=== PATIENT | male | born 1950 | race Caucasian/White ===

== ENCOUNTER 2018-01-30 00:45 | Inpatient (IN) | payer OTHER ==
[~2018-01-30] VITALS: Ht 185.4 cm; Wt 70.3 kg
[~2018-01-30 00:45] MED LIST: AMLODIPINE-BEN1 EAC4 PO; CLOPIDOGREL75 M1 PO; HYDROCHLOROTHIA25 M1 PO; OXYCODONE HCL10 M2 PO; RESTORIL30 M1 PO; ST. JOSEPH ASPI81 M1 PO; TOPROL XL50 M1 PO
--- NOTE | 2018-01-30 13:03 | Operative Report ---
Operative/Inv Procedure Report Surgery Date: 01/30/18 Name of Procedure: Right femoral anterior tibial artery bypass with reversed greater saphenous vein harvested from the contralateral leg Pre-Operative Diagnosis: Right lower extremity rest pain Post-Operative Diagnosis: Same Estimated Blood Loss: 50ml to 100ml Surgeon/Linotypist: Gissel FOSTER,Jesus/Messi FOSTER, Sergei Anesthesia: general endotracheal tube Operative/Procedure Note Note: Patient is a 67-year-old man with peripheral arterial disease and active smoker who presented with right leg rest pain. Preoperative imaging showed that the right greater saphenous vein was inadequate. Left greater saphenous vein was adequate in size. The patient was scheduled for right femoral to anterior tibial artery bypass with reverse greater saphenous vein. The nature of the procedure including is possible complications which included but not limited to bleeding, infection, heart attack, blood clots, injury to vessels or nerve, and need for re-intervention were discussed. An informed consent was obtained. No qualified resident was available to assist in this complex case. Patient was taken to the operating room and placed supine on the table. A timeout was called according to protocol. 2 g of Ancef had been started. After satisfactory induction of anesthesia, a Jose catheter was placed. The patient was then prepped and draped in standard surgical fashion. Using ultrasound, left greater saphenous vein was marked. Left greater saphenous vein was then harvested by making an incision over the marked area on the skin. All branches were tied with silk ties. Then the attention was taken to the right leg. Using a scalpel, a longitudinal incision was made over the right groin. The common femoral artery was dissected sharply with Metzenbaum scissors. Proximal distal and profunda control were obtained loosely placed vessel loops. Then our attention was taken to the right lateral leg. An incision was made about shelter between the tibia and fibula and the lateral right leg. The incision was carried down through the subcutaneous tissue using electrocautery. The crural fascia was divided. The anterior tibialis muscle was retracted superiorly. Blunt dissection by retracting the extensor hallux longus posteriorly was carried out. The neurovascular bundle was noted. Small venous tributaries were ligated and divided. Anterior tibial artery was dissected sharply with Metzenbaum scissors. Proximal and distal control were obtained by loosely placing vessel loops. Then a tunneler was used to tunnel a subcutaneous course going from lateral right leg into the anterior groin. The vein was brought to the field and inflated with saline solution. The vein was then marked with marking pen. The vein was grafted and pulled through the tunneler. Care was taken not to twist the vein. At this time, 7000 units of heparin was given. After 3 minutes had passed, proximal distal and profunda control was obtained on the femoral artery. Using an 11 blade, an arteriotomy was made over the common femoral artery. The arteriotomy was extended using Brink scissors. The vein was then spatulated and sewn with 6-0 Prolene suture to create the proximal anastomosis. General was taken to the distal anastomosis. The vein was cut to size. The vein was then spatulated and edges were trimmed. Using an 11 blade, an arteriotomy was made over the anterior tibial artery. The arteriotomy was extended using Brink scissors. Proximal and distal control on anterior tibial artery were obtained by the way by pulling the vessel loops. 7- 0 Prolene suture was used to make the distal anastomosis. Prior to completing the anastomosis, the vein bypass was flushed and there was nice pulsatile flow. The anastomosis was then irrigated with heparinized saline solution. Upon completion of the anastomosis, there was great Doppler flow distal to the anastomosis. Hemostasis was obtained. The wound on the left leg was closed with 3-0 Vicryl suture in subdermal fashion. The skin was then closed with 4-0 Monocryl suture in subcuticular fashion. The groin wound was closed in 4 layers using 3-0 Vicryl suture. The skin was then closed with 4-0 Monocryl suture. The right leg wound was closed with 3-0 Vicryl suture in a subdermal fashion. The skin was then closed with karlene. Sterile dressings were applied to all wounds. The count at the end of the case was correct. The patient tolerated the procedure well and was taken to the recovery room in stable condition.
--- NOTE | 2018-01-30 13:20 | Admission Core Measures ---
Acute Coronary Syndrome (CM) ACS Core Measures Acute Coronary Syndrome Diagnosis No Congestive Heart Failure (NEW) CHF Core Measures Congestive Heart Failure Diagnosis No Cerebrovascular Accident (NEW) CVA Core Measures CVA/TIA Diagnosis No Venous Thromboembolism VTE Core Rosio (View Protocol) VTE Risk Factors Surgery No Mechanical VTE Prophylaxis d/t Surgical Contraindication No VTE Pharm Prophylaxis d/t NA PharmProphylax ordered Problem List As ranked by this Provider includes Assessment & Plan 1. Peripheral arterial occlusive disease HOME MEDS Home Med List Amlodipine Besylate/Benazepril (Amlodipine-Benazepril 10-20 MG) 10 MG-20 MG CAPSULE 1 CAP PO DAILY BP (Reported) Aspirin ([place] Aspirin) 81 MG TABLET.DR 1 TAB PO DAILY HEART HEALTH ( Reported) Clopidogrel Bisulfate (Clopidogrel) 75 MG TABLET 1 TAB PO DAILY STENT ( Reported) Hydrochlorothiazide 25 MG TABLET 1 TAB PO DAILY BP (Reported) Oxycodone HCl 10 MG TABLET 1 TAB PO 4XDP pain (Reported) Temazepam (Restoril) 30 MG CAPSULE 1 CAP PO QPM SLEEP (Reported)
--- NOTE | 2018-01-30 14:41 | PN- Vascular Surgery ---
Subjective Subjective: POC some pain in right foot, no cp/sob, awaiting transport to floor, +uo via machado, no n/v. Objective Vital Signs and I&Os see EMR Physical Exam: GEN- NAD CARD- s1s2 RRR PULM- CTAB ABD- soft nt EXT- R groin dressed, scant bloody staining, no ecchymosis, soft. palp dp bl. lle dressed in neeru, cdi. R foot warm. Assessment/Plan Assessment/Plan A- POD0 sp Right Fem-ant tib bypass with contralateral vein graft, stable P- ASA and Plavix tonight hh diet as lori pain meds prn home meds machado- dc in am oob as tolerated. pt in am dc planning Core Measures Venous Thromboembolism VTE Risk Factors Surgery No Mechanical VTE Prophylaxis d/t Surgical Contraindication No VTE Pharm Prophylaxis d/t NA PharmProphylax ordered
[2018-01-30 14:57] VITALS: BP 143/81
[2018-01-30 17:00] VITALS: BP 95/64
[2018-01-30 20:24] VITALS: BP 112/58
[2018-01-30 22:17] VITALS: BP 124/70
[2018-01-31 02:00] VITALS: BP 118/64
[2018-01-31 06:00] VITALS: BP 112/62
--- NOTE | 2018-01-31 07:41 | PN- Vascular Surgery ---
Subjective Subjective: Awake, alert Ambulating in room without difficulty Pain is not tolerable without frequent meds - per patient he was taking a "lot" of oxy for two months prior to surgery for pain at rest Objective Vital Signs and I&Os Vital Signs Date Time Temp Pulse Resp B/P B/P Pulse O2 O2 Flow FiO2 Mean Ox Delivery Rate 01/31 0600 97.8 75 18 112/62 94 01/31 0200 98.1 68 18 118/64 94 01/30 2217 98.2 70 18 124/70 95 Room Air 01/30 2024 98.4 70 20 112/58 95 Room Air 01/30 1700 97.7 69 18 95/64 96 Room Air 01/30 1457 97.8 64 18 143/81 92 Room Air Intake & Output 01/31 0800 01/31 0000 01/30 1600 01/30 0800 01/30 0000 01/29 1600 Intake Total 1280 580 Output Total 725 325 Balance 555 255 Intake, IV 800 340 Intake, Oral 480 240 Number 0 0 Bowel Movements Output, 0 Drainage Output, Urine 725 325 Patient 155 lb Weight Weight Reported by Patient Measurement Method Physical Exam: vss, afebrile General: alert and oriented times three Chest: clear anterioly bilaterally, Abd: soft Ext: warm, no edema, dopplerable pulse R DP/PT, non palpable Wds: dressed - LLE clean and dry, R groin blood staining, R lower leg clean and dry Assessment/Plan Assessment/Plan 67yo male s/p R fem-ant tib bypass with LLE svg plavix/aspirin/heparin sc for dvt ppx pain management - change percocet to oxycodone as pt will have too much tylenol morphine iv for breakthrough Core Measures Venous Thromboembolism VTE Risk Factors Surgery No Mechanical VTE Prophylaxis d/t Surgical Contraindication No VTE Pharm Prophylaxis d/t NA PharmProphylax ordered
[2018-01-31 08:56] LABS: ABSOLUTE BASOPHIL COUNT 0 /CUMM (0.0-0.2); ABSOLUTE EOSINOPHIL COUNT 0 /CUMM (0.0-0.7); ABSOLUTE GRANULOCYTE CT 6.4 /CUMM (1.4-6.5); ABSOLUTE LYMPH COUNT 1.6 /CUMM (1.2-3.4); ABSOLUTE MONOCYTE COUNT 0.8 /CUMM (0.10-0.60); BASOPHIL % 0.3 % (0.0-2.0); EOSINOPHIL % 0.1 % (0-5); GRANULOCYTE % 72.5 % (42.2-75.2); HEMATOCRIT 26.6 % (42-52); MEAN CORPUSCULAR HGB 30.9 PG (27.0-31.0); MEAN CORPUSCULAR HGB CONC 33.1 G/DL (33.0-37.0); MEAN CORPUSCULAR VOLUME 93.4 FL (80.0-94.0); MEAN PLATELET VOLUME 8.3 FL (7.4-10.4); PLATELET COUNT 126 /CUMM (130-400); RBC DISTRIBUTION WIDTH 14.5 % (11.5-14.5); RED BLOOD CELL CT 2.85 /CUMM (4.70-6.10); WHITE BLOOD CELL COUNT 8.8 /CUMM (4.8-10.8)
[2018-01-31 10:30] VITALS: BP 128/80
[2018-01-31 14:17] VITALS: BP 120/68
[2018-01-31 14:43] VITALS: BP 120/68
[2018-01-31 21:00] VITALS: BP 110/70
--- NOTE | 2018-01-31 22:25 | PN- Vascular Surgery ---
Subjective Subjective: Post op check: Patient complaining of spasm like discomfort to his right lower extremity. He also reports complains of acid reflux. He other cruz denies shortness of breath and difficulty breathing. No complaints of nausea or vomitting. Has machado catheter in place. Objective Vital Signs and I&Os Vital Signs Date Time Temp Pulse Resp B/P B/P Pulse O2 O2 Flow FiO2 Mean Ox Delivery Rate 01/31 1443 97.6 78 18 120/68 95 Room Air 01/31 1417 97.6 78 18 120/68 95 Room Air 01/31 1042 78 122/80 01/31 1030 98.0 78 20 128/80 97 Room Air 01/31 0600 97.8 75 18 112/62 94 01/31 0200 98.1 68 18 118/64 94 01/30 2217 98.2 70 18 124/70 95 Room Air Intake & Output 01/31 1600 01/31 0800 01/31 0000 01/30 1600 01/30 0800 01/30 0000 Intake Total 900 1280 580 Output Total 650 725 325 Balance 250 555 255 Intake, IV 100 800 340 Intake, Oral 800 480 240 Number 0 0 0 Bowel Movements Output, 0 Drainage Output, Urine 650 725 325 Patient 155 lb Weight Weight Reported by Patient Measurement Method Physical Exam: General: Alert and oriented x3, no acute distress Cardiac: rrr, s1s2 Pulm: CTA bilaterally ABD: non-tender, non-distended Extremities: Gross exams: Moves all extremties, distal sensation grossly intact. Skin warm and well perfused. Calves soft and non-tender bilaterally. Vascular exam: Palpable pulse over graft site, lateral right knee, dp/pt pulses dopplerable bialterally. Dressing to distal aspect of LLE changed, no evidence of active bleeding from saphenous vein harvest site. Bruising noted at proximal aspect of harvest site on lle. No active bleeding evident. Assessment/Plan Assessment/Plan This is a 67 year old male, POD 0, s/p revision R fem-ant tib bypass with LLE svg Neurovascular check q shift, assess graft site, lateral aspect of right knee, palpable at baseline Moravian heparin drip, 700 units/hour Plavix tonight, asa tomorrow am Ancef for abx ppx Valium for spasm Will d/w Dr. Chauhan Core Measures Venous Thromboembolism VTE Risk Factors Surgery No Mechanical VTE Prophylaxis d/t Surgical Contraindication No VTE Pharm Prophylaxis d/t NA PharmProphylax ordered
[2018-02-01 06:50] VITALS: BP 113/54
--- NOTE | 2018-02-01 07:36 | PN- Vascular Surgery ---
See Addendum Subjective Subjective: Patient continues to complain of intermittent burning pain and spasms, he states the pain is improved with Morphine, but does not completely resolve his pain. He reports voiding and has not ambulated oob since surgery. Denies chest pain, shortness of breath or difficulty breathing Objective Vital Signs and I&Os Vital Signs Date Time Temp Pulse Resp B/P B/P Pulse O2 O2 Flow FiO2 Mean Ox Delivery Rate 02/01 0650 97.9 77 18 113/54 92 Nasal 2.0L Cannula 02/01 0000 94 Nasal 2.0L Cannula 01/31 2100 97.9 70 18 110/70 95 Nasal 3.0L Cannula 01/31 1443 97.6 78 18 120/68 95 Room Air 01/31 1417 97.6 78 18 120/68 95 Room Air 01/31 1042 78 122/80 01/31 1030 98.0 78 20 128/80 97 Room Air Intake & Output 02/01 0800 02/01 0000 01/31 1600 01/31 0800 01/31 0000 01/30 1600 Intake Total 1030 152 050 3818 580 Output Total 200 500 650 725 325 Balance 830 205 250 555 255 Intake, IV 790 225 100 800 340 Intake, Oral 240 480 800 480 240 Number 0 0 0 Bowel Movements Output, 0 Drainage Output, Urine 200 500 650 725 325 Patient 155 lb Weight Weight Reported by Patient Measurement Method Physical Exam: Gen - awake an alert in NAD Cardiac - S1S2, rrr Lungs - CTAB Ext - significant brusing in right groin area, dressing c/d/i, right lateral leg dressing mildly saturated an taken down, closed with karlene healing well with no signs of infection, pulses present, redressed with gauze an tape, LLE with neeru wrap in place, c/d/i, DP/PT pulses present B/L Current Medications: Current Medications Sig/Nic Start time Last Medication Dose Route Stop Time Status Admin Acetaminophen 650 MG Q6P PRN 01/31 1815 AC PO Acetaminophen 650 MG Q6P PRN 01/30 1500 DC PO Amlodipine Besylate 10 MG DAILY 02/01 1000 AC PO Amlodipine Besylate 10 MG DAILY 01/31 1000 DC PO Amlodipine Besylate 10 MG DAILY 01/31 1000 DC 01/31 PO 1042 Aspirin Buffered 81 MG DAILY 02/01 1000 AC PO Aspirin Buffered 81 MG DAILY 01/30 2000 DC 01/31 PO 1041 Cefazolin Sodium 2 GM IQ8 02/01 0000 AC 02/01 N/A 1 UNIT IV 02/01 0829 0722 Clopidogrel Bisulfate 75 MG 2200 01/31 2200 CAN PO Clopidogrel Bisulfate 75 MG Q24H 01/31 2000 AC 01/31 PO 2039 Clopidogrel Bisulfate 75 MG DAILY 01/31 2000 DC 01/30 PO 2011 Dextrose/Sodium 1,000 ML Q13H 01/31 1830 AC 02/01 Chloride IV 0618 Dextrose/Sodium 1,000 ML .Q10H 01/30 1500 DC 01/31 Chloride IV 01/31 1059 0403 Diazepam 5 MG Q8P PRN 01/31 2230 AC 01/31 PO 2355 Docusate Sodium 100 MG BID 01/31 2200 AC 01/31 PO 2039 Docusate Sodium 100 MG BID 01/30 2200 DC 01/30 PO 2048 Fentanyl Citrate 200 MCG .STK-MED ONE 01/31 1359 DC IM 01/31 1400 Heparin Sodium 25,000 U Q24H 01/31 1830 AC 01/31 (Porcine) IV 2038 Sodium Chloride 500 ML Heparin Sodium 25,000 UNIT DAILY 01/31 1816 CAN (Porcine) IV Heparin Sodium 5,000 UNIT Q8 01/30 1400 DC 01/31 (Porcine) SC 0539 Hydrochlorothiazide 25 MG DAILY 02/01 1000 AC PO Hydrochlorothiazide 25 MG DAILY 01/31 1000 DC PO Hydrochlorothiazide 25 MG DAILY 01/31 1000 DC 01/31 PO 1041 Lisinopril 10 MG DAILY 02/01 1000 AC PO Lisinopril 10 MG DAILY 01/31 1000 DC 01/31 PO 1042 Meperidine HCl 50 MG .STK-MED ONE 01/31 1814 DC IM 01/31 1815 Metoprolol Succinate 50 MG DAILY 02/01 1000 AC PO Metoprolol Succinate 50 MG DAILY 01/31 1000 DC PO Metoprolol Succinate 50 MG DAILY 01/31 1000 DC 01/31 PO 1042 Morphine Sulfate 2 MG Q2P PRN 01/31 1815 AC 02/01 IV 0554 Morphine Sulfate 2 MG Q2P PRN 01/30 1500 DC 01/31 IV 0633 Nicotine 14 MG DAILY 02/01 1000 AC TOP Nicotine 14 MG DAILY 01/30 1530 DC 01/31 TOP 1041 Ondansetron HCl 4 MG Q6P PRN 01/31 1815 AC IV Ondansetron HCl 4 MG Q6P PRN 01/30 1500 DC IV Oxycodone HCl 5 MG Q4P PRN 01/31 181 AC PO Oxycodone HCl 10 MG Q4P PRN 01/31 181 AC 02/01 PO 0722 Oxycodone HCl 5 MG Q4P PRN 01/31 0745 DC PO Oxycodone HCl 10 MG Q4P PRN 01/31 0745 DC 01/31 PO 1147 Oxycodone/ 1 TAB Q4P PRN 01/30 1500 DC Acetaminophen PO Oxycodone/ 2 TAB Q4P PRN 01/30 1500 DC 01/31 Acetaminophen PO 0539 Pantoprazole Sodium 40 MG DAILY 01/31 2230 AC 01/31 IV 2355 Polyethylene Glycol 17 GM DAILY 02/01 1000 AC PO Polyethylene Glycol 17 GM DAILY 01/31 1000 DC PO Polyethylene Glycol 17 GM DAILY NEEDED 01/30 1500 DC PO Promethazine HCl 12.5 MG Q6P PRN 01/31 1815 AC IV 02/07 1814 Promethazine HCl 12.5 MG Q6P PRN 01/30 1500 DC IV 02/06 1314 Results Last 48 Hours of Labs: Laboratory Tests 01/31 0610 Chemistry Sodium (137 - 145 mmol/L) 135 L Potassium (3.5 - 5.1 mmol/L) 4.2 Chloride (98 - 107 mmol/L) 103 Carbon Dioxide (22 - 30 mmol/L) 24 Anion Gap (5 - 16) 8 BUN (9 - 20 mg/dL) 23 H Creatinine (0.7 - 1.2 mg/dL) 0.8 Estimated GFR (>60 ml/min) > 60 BUN/Creatinine Ratio (7 - 25 %) 28.8 H Hematology CBC w Diff NO MAN DIFF REQ WBC (4.8 - 10.8 /CUMM) 8.8 RBC (4.70 - 6.10 /CUMM) 2.85 L Hgb (14.0 - 18.0 G/DL) 8.8 L Hct (42 - 52 %) 26.6 L MCV (80.0 - 94.0 FL) 93.4 MCH (27.0 - 31.0 PG) 30.9 MCHC (33.0 - 37.0 G/DL) 33.1 RDW (11.5 - 14.5 %) 14.5 Plt Count (130 - 400 /CUMM) 126 L MPV (7.4 - 10.4 FL) 8.3 Gran % (42.2 - 75.2 %) 72.5 Lymphocytes % (20.5 - 51.1 %) 17.9 L Monocytes % (1.7 - 9.3 %) 9.2 Eosinophils % (0 - 5 %) 0.1 Basophils % (0.0 - 2.0 %) 0.3 Absolute Granulocytes (1.4 - 6.5 /CUMM) 6.4 Absolute Lymphocytes (1.2 - 3.4 /CUMM) 1.6 Absolute Monocytes (0.10 - 0.60 /CUMM) 0.8 H Absolute Eosinophils (0.0 - 0.7 /CUMM) 0 Absolute Basophils (0.0 - 0.2 /CUMM) 0 Assessment/Plan Assessment/Plan This is a 67 year old male, POD 1, s/p revision R fem-ant tib bypass with LLE svg Neurovascular check q shift Yazidi heparin drip, 700 units/hour Postop abx - ancef Asa this am Cont plavix Pain regimen prn, add oxycodone cr 10 mg bid Valium for spasm Home meds on board GI ppx on board Nicotine patch Cardiac diet, d/c IVF PT eval F/u labs Will d/w Dr. Chauhan Core Measures Venous Thromboembolism VTE Risk Factors Surgery No Mechanical VTE Prophylaxis d/t Surgical Contraindication No VTE Pharm Prophylaxis d/t NA PharmProphylax ordered
--- NOTE | 2018-02-01 07:58 | RADIOLOGY REPORT ---
EXAMINATION: CR RIGHT LEG/INTRAOPERATIVE FLUOROSCOPY CLINICAL INDICATION: Right leg thrombectomy. COMPARISON: None TECHNIQUE/FINDINGS: Fluoroscopic equipment was dedicated to the operating room for the performance of an intraoperative procedure. Several (23) spot films and 11 cine fluoroscopy runs were acquired and are archived in PACS. Please refer to operative notes for procedural detail. FLUOROSCOPY TIME: 1.35 minutes. IMPRESSION: Administrative dictation for intraoperative fluoroscopy and image archiving in PACS. Please refer to operative notes for details.
[2018-02-01 08:00] LABS: PTT 32 SEC (25-37)
[2018-02-01 08:22] LABS: ABSOLUTE BASOPHIL COUNT 0.1 /CUMM (0.0-0.2); ABSOLUTE EOSINOPHIL COUNT 0.1 /CUMM (0.0-0.7); ABSOLUTE GRANULOCYTE CT 7.4 /CUMM (1.4-6.5); ABSOLUTE LYMPH COUNT 1.6 /CUMM (1.2-3.4); BASOPHIL % 0.5 % (0.0-2.0); EOSINOPHIL % 0.6 % (0-5); GRANULOCYTE % 73.5 % (42.2-75.2); HEMATOCRIT 25.2 % (42-52); MEAN CORPUSCULAR HGB 30.5 PG (27.0-31.0); MEAN CORPUSCULAR HGB CONC 33.3 G/DL (33.0-37.0); MEAN CORPUSCULAR VOLUME 91.7 FL (80.0-94.0); MEAN PLATELET VOLUME 8.6 FL (7.4-10.4); RBC DISTRIBUTION WIDTH 14.1 % (11.5-14.5); RED BLOOD CELL CT 2.75 /CUMM (4.70-6.10)
[2018-02-01 08:35] LABS: PLATELET COUNT 209 /CUMM (130-400)
[2018-02-01 14:11] VITALS: BP 112/50
[2018-02-01 15:39] LABS: ABSOLUTE BASOPHIL COUNT 0 /CUMM (0.0-0.2); ABSOLUTE EOSINOPHIL COUNT 0.1 /CUMM (0.0-0.7); ABSOLUTE GRANULOCYTE CT 5.8 /CUMM (1.4-6.5); ABSOLUTE LYMPH COUNT 1.3 /CUMM (1.2-3.4); ABSOLUTE MONOCYTE COUNT 0.8 /CUMM (0.10-0.60); BASOPHIL % 0.5 % (0.0-2.0); EOSINOPHIL % 0.7 % (0-5); GRANULOCYTE % 72.6 % (42.2-75.2); HEMATOCRIT 22.7 % (42-52); MEAN CORPUSCULAR HGB CONC 34.4 G/DL (33.0-37.0); MEAN PLATELET VOLUME 8.7 FL (7.4-10.4); PLATELET COUNT 204 /CUMM (130-400); RBC DISTRIBUTION WIDTH 14.4 % (11.5-14.5); RED BLOOD CELL CT 2.52 /CUMM (4.70-6.10)
[2018-02-01 22:00] VITALS: BP 99/58
[2018-02-02 06:49] VITALS: BP 120/71
[2018-02-02 08:15] LABS: ABSOLUTE BASOPHIL COUNT 0 /CUMM (0.0-0.2); ABSOLUTE EOSINOPHIL COUNT 0.1 /CUMM (0.0-0.7); ABSOLUTE GRANULOCYTE CT 5.5 /CUMM (1.4-6.5); ABSOLUTE LYMPH COUNT 1.4 /CUMM (1.2-3.4); ABSOLUTE MONOCYTE COUNT 0.7 /CUMM (0.10-0.60); BASOPHIL % 0.4 % (0.0-2.0); EOSINOPHIL % 1.4 % (0-5); GRANULOCYTE % 71.2 % (42.2-75.2); HEMATOCRIT 27.3 % (42-52); MEAN CORPUSCULAR HGB 30.2 PG (27.0-31.0); MEAN CORPUSCULAR VOLUME 88.8 FL (80.0-94.0); MEAN PLATELET VOLUME 8.2 FL (7.4-10.4); PLATELET COUNT 199 /CUMM (130-400); RBC DISTRIBUTION WIDTH 14.7 % (11.5-14.5); RED BLOOD CELL CT 3.08 /CUMM (4.70-6.10); WHITE BLOOD CELL COUNT 7.8 /CUMM (4.8-10.8)
--- NOTE | 2018-02-02 10:57 | PN- Vascular Surgery ---
Subjective Subjective: No events overnight. Patient admits to ongoing RLE spasms mostly below the knee, unchanged from previous. Admits to mild pain to RLE lateral incision. No pain to LLE currently. Denies any lightheadedness or dizziness. Tolerating his diet without nausea or emesis. Denies any chills, chest pain, or SOB. Voiding freely. Ambulated the hallway today without difficulty or evidence of bleeding on dressings. Objective Vital Signs and I&Os Vital Signs Date Time Temp Pulse Resp B/P B/P Pulse O2 O2 Flow FiO2 Mean Ox Delivery Rate 02/02 1032 78 132/80 02/02 0722 95 Nasal 2.0L Cannula 02/02 0649 98.5 75 19 120/71 96 Room Air 02/02 0000 97 Nasal 2.0L Cannula 02/01 2200 97.4 77 19 99/58 93 Room Air 02/01 1600 Nasal 2.0L Cannula 02/01 1411 99.0 76 18 112/50 90 Nasal 2.0L Cannula 02/01 1356 22 91 Nasal 2.0L Cannula 02/01 1355 22 86 Room Air Intake & Output 02/02 1600 02/02 0800 02/02 0000 02/01 1600 02/01 0800 02/01 0000 Intake Total 753 375 4557 705 Output Total 850 500 775 525 500 Balance -650 -500 137 505 205 Intake, IV 80 112 790 225 Intake, Oral 120 800 240 480 Number 1 0 Bowel Movements Output, Urine 850 500 775 525 500 Physical Exam: Afebrile, VSS. Cardiac: RRR Pulmonary:CTAB LE: Mild bilateral groin ecchymosis (unchanged from prior per patient), non tender to palpation. Bilateral calves soft and non tender to palpation. Skin warm and well perfused bilaterally. LLE: Dressing with minimal serosanguinous drainage at bottom of dressing. Dressing taken down. Incision c/d/i. No drainage noted. No hematomas noted. Dry sterile dressing applied. Sensation and motor grossly intact. + DP/PT pulse by doppler. RLE: Dressing c/d/i, no drainage noted. Dressing taken down. Incision c/d/i, karlene in place. New dressing applied. Palpable pulse over graft site. Motor and sensation grossly intact. + DP/PT pulse by doppler. Assessment/Plan Assessment/Plan 67 year old male, POD #2, s/p revision R fem-ant tib bypass with LLE svg. H/H improved this am. - Diet as tolerated - Neurovascular check q shift - Heparin drip decreased to 500 units/hour - Continue ASA and Plavix - Pain control prn - Valium for spasms - Continue home medications - GI ppx - Nicotine patch - PT following - Ultrasound obtained secondary to RLE spasms - will follow up results - Will d/w Dr. Chauhan Core Measures Venous Thromboembolism VTE Risk Factors Surgery No Mechanical VTE Prophylaxis d/t Surgical Contraindication No VTE Pharm Prophylaxis d/t NA PharmProphylax ordered
[2018-02-02 14:31] VITALS: BP 110/69
[2018-02-02] MEDS ORDERED: ELIQUIS2.5 M1 PO (16:58)
--- NOTE | 2018-02-02 17:03 | Patient Discharge Instructions ---
Discharge Instructions General Discharge Information You were seen/treated for: Right leg pain related to peripheral arterial disease You had these procedures: Right femoral anterior tibial artery bypass with reversed greater saphenous vein harvested from the contralateral leg, subsequent revision with thrombectomy of graft site Watch for these problems: Increasing pain despite the use of pain medications Increasing bruising and swelling of bilateral lower extremities Increasing coolness or discoloration of bilateral legs Drainage from incisions Do not soak the wound: Yes No bath, but you may shower: Yes Other wound care: Keep wounds clean and dry Diet Continue normal diet: Yes Recommended Diet: Heart Healthy Activity Full Activity/No Limits: No Activity Self Limited: Yes Pounds, do NOT lift more than: 10 Activity Limited to: Weight bear as tolerated (as) Acute Coronary Syndrome Inclusion Criteria At DC or during hospital stay patient has or had the following: ACS DIAGNOSIS No Discharge Core Measures Meds if any: Prescribed or Continued at Discharge Meds if any: NOT Prescribed or Continued at Discharge Congestive Heart Failure Inclusion Criteria At DC or during hospital stay patient has or had the following: CHF DIAGNOSIS No Discharge Core Measures Meds if any: Prescribed or Continued at Discharge Meds if any: NOT Prescribed or Continued at Discharge Cerebrovascular accident Inclusion Criteria At DC or during hospital stay patient has or had the following: CVA/TIA Diagnosis No Discharge Core Measures Meds if any: Prescribed or Continued at Discharge Meds if any: NOT Prescribed or Continued at Discharge Venous thromboembolism Inclusion Criteria VTE Diagnosis No VTE Type NONE VTE Confirmed by (Test) NONE Discharge Core Measures - Per Current guidelines, there needs to be overlap - treatment for the first 5 days of Warfarin therapy. - If discharged on Warfarin prior to 5 days of - overlap therapy, the patient will need to be - assessed for post discharge needs including - *Post discharge parental anticoagulation - *Warfarin and/or parental anticoagulation education - *Follow up date to check INR post discharge At least 5 days overlap therapy as Inpatient No Meds if any: Prescribed or Continued at Discharge Note: Overlap Therapy is Warfarin and Anticoagulant Meds if any: NOT Prescribed or Continued at Discharge
--- NOTE | 2018-02-02 17:09 | Surgical Discharge Summary ---
Visit Information Visit Dates Admission Date: 01/30/18 Discharge Date: 02/03/18 History of Present Illness Chief Complaint: Right leg pain related to peripheral arterial disease Medical History Blood Transfusion Hx: No Neurological: CVA EENT: NONE Cardiovascular: CAD, hypertension, PVD Respiratory: NONE Gastrointestinal: NONE Hepatic: NONE Renal: NONE Musculoskeletal: NONE Psychiatric: NONE Endocrine: NONE Blood Disorders: DVT Cancer(s): NONE ANGULAR DEVELOPER/Reproductive: NONE History of MRSA: No History of VRE: No History of CDIFF: No Isolation History: Standard Influenza Vaccine: 12/22/16 Surgical History Pertinent Surgical History: CARDIAC STENTS Psychosocial History Where Do You Live? Home Who Do You Live With? Spouse Services at Home: None Review of Systems: See H&P Hospital Course Course Attending Physician: Jesus Chauhan MD Primary Care Physician: Tyler FOSTER,[facility] Course: Patient was admitted to the hospital on 01/30/18 for a right femoral anterior tibial artery bypass with reversed greater saphenous vein harvested from the contralateral leg. The initial procedure was tolerated well, antiplatelet medications were administered post operatively. On post op day 1, his graft site was no longer patent, pulse was not palpable and he was taken to operating room for a revision bypass and thrombectomy. He tolerated the procedure well and recovered on a general surgical floor. Heparin drip was administered for 2 days post op and eventually converted to eliquis po. On post op day 3, post revision, his neurovascular status was intact and he was deemed appropriate for discharge to home. Complications: post-op acute blood loss anemia, s/p transfusion 2u prbc on 02/01, with improvement of anemia Allergies: Coded Allergies: No Known Allergies (01/26/18) Disposition Summary Disposition Principal Diagnosis: Right lower extremity rest pain related to peripheral arterial disease Additional Diagnosis: acute dawson-operative blood loss anemia, s/p transfusion 2u prbc on 02/02/16 Discharge Disposition: home or self care Discharge Instructions General Discharge Information Code Status: Full Code Patient's Diet: Heart healthy, advance as tolerated Patient's Activity: As tolerated Follow-Up Instructions/Appts: Follow up with Dr. Chauhan in one week Medications at Discharge Discharge Medications: Continue taking these medications: Amlodipine Besylate/Benazepril (Amlodipine-Benazepril 10-20 MG) 10 MG-20 MG CAPSULE 1 Capsule ORAL DAILY Comments: Last Taken: 3/16/18 Time: 10 AM Hydrochlorothiazide (Hydrochlorothiazide) 25 MG TABLET 1 Tablet ORAL DAILY Comments: Last Taken: 02/03/18 Time: 10 AM Aspirin ([place] Aspirin) 81 MG TABLET.DR 1 Tablet ORAL DAILY Comments: Last Taken: 02/03/18 Time: 10 AM Metoprolol Succ XL (Toprol Xl) 50 MG TAB Milligram ORAL DAILY Comments: Last Taken: 02/03/18 Time: 10 AM Temazepam (Restoril) 30 MG CAPSULE 1 Capsule ORAL Every night Comments: NOT GIVEN DURING THIS STAY Clopidogrel Bisulfate (Clopidogrel) 75 MG TABLET 1 Tablet ORAL DAILY Comments: NOT GIVEN DURING THIS STAY Start taking the following new medications: Apixaban (Eliquis) 2.5 MG TABLET 1 Tablet ORAL TWICE DAILY Qty = 60 No Refills Instructions: f/u with Comments: Last Taken: 02/03/18 Time: 10 AM The following medications have been changed: Old: Oxycodone HCl (Oxycodone HCl) 10 MG TABLET 1 Tablet ORAL 4 times daily as needed New: Oxycodone HCl (Oxycodone HCl) 10 MG TABLET 1 Tablet ORAL EVERY 4-6 HOURS NEEDED Qty = 36 Comments: Last Taken: 02/03/18 Time: 10:30 AM Copies To: Carlos Scott MD
--- NOTE | 2018-02-02 18:13 | ULTRASOUND REPORT ---
EXAMINATION: US DUPLEX LOWER EXTREMITY ARTERY/GRAFT LIMITED CLINICAL INFORMATION: Status post recent reversed vein right common femoral to proximal anterior tibial bypass graft which thrombosed shortly after surgery requiring thrombectomy. The patient is now presenting with right thigh swelling and ecchymosis with a dropping hematocrit. Evaluate for bleeding source. COMPARISON: Intraoperative arteriogram of 01/31/2018. TECHNIQUE: Duplex Doppler ultrasound was performed of the patient's right leg bypass graft. FINDINGS: A focal 1.7 x 3.0 x 2.5 cm hematoma seen in the right inguinal area surrounding the patient's bypass graft. The vein graft is well visualized. A small amount of fluid is seen tracking along the vein graft which is not expected in the early postoperative phase. No pseudoaneurysm seen at the proximal graft anastomosis or within the graft at the level of the thigh. Normal biphasic waveforms were seen at the graft anastomoses as well as within the remainder of the graft. Peak systolic velocities are 194 cm/s at the proximal anastomosis and 118 cm/s at the anterior tibial anastomosis. The velocities range between 275 and 202 cm/s within the body of the graft. No evidence of focal flow acceleration within the graft. The right common femoral and proximal profunda femoral arteries are seen to be patent. The superficial femoral artery is occluded proximally. IMPRESSION: 1. Small right inguinal hematoma. 2. No evidence of a pseudoaneurysm or stenosis in the patient's right leg venous bypass graft.
[2018-02-02 21:42] VITALS: BP 120/77
[2018-02-03 06:54] VITALS: BP 131/78
[2018-02-03 08:23] LABS: ABSOLUTE BASOPHIL COUNT 0 /CUMM (0.0-0.2); ABSOLUTE EOSINOPHIL COUNT 0.2 /CUMM (0.0-0.7); ABSOLUTE GRANULOCYTE CT 7.6 /CUMM (1.4-6.5); ABSOLUTE LYMPH COUNT 1.3 /CUMM (1.2-3.4); ABSOLUTE MONOCYTE COUNT 0.6 /CUMM (0.10-0.60); BASOPHIL % 0.3 % (0.0-2.0); EOSINOPHIL % 1.9 % (0-5); HEMATOCRIT 28.3 % (42-52); MEAN CORPUSCULAR HGB 30.7 PG (27.0-31.0); MEAN CORPUSCULAR HGB CONC 34.5 G/DL (33.0-37.0); MEAN CORPUSCULAR VOLUME 89.1 FL (80.0-94.0); MEAN PLATELET VOLUME 7.9 FL (7.4-10.4); PLATELET COUNT 243 /CUMM (130-400); RBC DISTRIBUTION WIDTH 14.2 % (11.5-14.5); RED BLOOD CELL CT 3.17 /CUMM (4.70-6.10); WHITE BLOOD CELL COUNT 9.7 /CUMM (4.8-10.8)
[2018-02-03 10:12] VITALS: BP 131/78
[2018-02-03] MEDS ORDERED: ELIQUIS2.5 M1 PO (10:56)
[2018-02-03] MEDS ORDERED: OXYCODONE HCL10 M2 PO (10:56)
--- NOTE | 2018-02-06 10:11 | Operative Report ---
Operative/Inv Procedure Report Surgery Date: 01/31/18 Name of Procedure: -Right groin and leg exploration -Evacuation of hematoma -Thrombectomy of the femoral anterior tibial bypass with Butch balloon -Right leg angiogram with sheath in the right common femoral artery Pre-Operative Diagnosis: Thrombosis of right femoral anterior tibial artery bypass Post-Operative Diagnosis: Same Estimated Blood Loss: 50ml to 100ml Surgeon/Reject Opener: Gissel FOSTER,Jesus/Messi FOSTER,Sergei Anesthesia: general endotracheal tube Operative/Procedure Note Note: 67-year-old man who underwent right femoral to anterior tibial artery bypass with contralateral reverse saphenous vein was found to have a nonpulsatile exam over the bypass. There was also no flow through the bypass by Doppler. Working diagnosis was that thrombosis of the bypass. The patient was urgently taken to the operating room for aspiration and thrombectomy. Nature of the procedure including is possible complications which included but not limited to bleeding, infection, injury to vessels, blood clots, and need for re-intervention were discussed. An informed consent was obtained. Patient was taken to the operating room and placed supine on the table. After satisfactory induction of anesthesia, a Jose catheter was placed. Preoperative antibiotic was started. The patient was then prepped and draped in standard surgical fashion. There was ecchymosis around the right groin. The right upper thigh and groin also was swollen. The right groin and the right lateral leg incisions were reopened. There was fair amount of coagulated blood in the right groin which was evacuated. 7000 units of heparin was given. Proximal distal control were obtained on femoral and tibial artery. A small transverse incision was made over the milner of the proximal and distal anastomosis. There was fresh thrombus in both areas which was pulled out with DeBakeys. Then attempt at passing a Butch balloon from the distal anastomosis was unsuccessful due to valves. The #3 Butch balloon was then advanced from the proximal anastomosis into the distal and was pulled back. Large amount of thrombus was extracted. The vein bypass was then copiously irrigated with heparinized saline solution. The venotomy on the order of the proximal distal anastomosis was closed with interrupted Prolene sutures. There was great biphasic Doppler flow distal to the tibial anastomosis. Then I proceeded to perform a completion angiogram. A micropuncture needle was used to the common femoral artery just proximal to the proximal anastomosis. The wire was advanced into the right iliac artery. The micropuncture needle was exchanged with a micropuncture sheath. Right leg angiogram was then performed which showed a slight kink 15 cm distal to the proximal anastomosis. By putting my hand over the graft in the groin and following it, I was able to bluntly released the tissue that was causing the kink in the bypass. After blunt dissection, and other angiogram showed resolution of the kink. Brisk flow through the bypass into the anterior tibial artery. The puncture site on the common femoral artery was then closed with 6-0 Prolene suture in a pursestring fashion. Both wounds were then copiously irrigated with sterile saline. Hemostasis was obtained. One was closed with 3- 0 Vicryl suture in 3 layers. The skin was then closed with 4-0 Monocryl suture and in a subcuticular fashion. The fascia was approximated with 3-0 Vicryl suture on the lateral leg incision. Subdermal stitches were then placed with 3- 0 Vicryl suture. Skin was then closed with karlene. The count at the end the case was correct. Sterile dressings were applied. The patient had a palpable pulse over the lateral knee where the bypass was tunneled. It was then awakened and taken to the PACU in stable condition.
== END 2018-02-03 13:52 | disposition home health service (06) | DRG 271 ==
LOC: SDA 00:45 → ENRESERV 13:10 → ENTRNSPT 14:18 → EDTRNSPT 14:29 → EDTRNSPTSTS 14:29 → 2NB 14:41 → CMPTRNSPT 14:51 → 2NB 20:14 → ENTRNSPT 01-31 18:54 → EDTRNSPTSTS 01-31 19:18 → EDTRNSPT 01-31 19:18 → CMPTRNSPT 01-31 19:39 → ENPENDDIS 02-03 11:08 → ENTRNSPT 02-03 13:46 → EDTRNSPTSTS 02-03 13:48 → EDTRNSPT 02-03 13:48 → 2NB 02-03 13:52 → CMPTRNSPT 02-03 14:28
PROVIDERS: Nurse Practitioner; Physician Assistant Surgical
PROC: 041K09N Bypass Right Femoral Artery to Posterior Tibial Artery with Autologous Venous Tissue, Open Approach (ICD-10-PCS; principal; 2018-01-30)
PROC: 06BQ0ZZ Excision of Left Saphenous Vein, Open Approach (ICD-10-PCS; 2018-01-30)
PROC: 04CK3ZZ Extirpation of Matter from Right Femoral Artery, Percutaneous Approach (ICD-10-PCS; 2018-01-31)
PROC: 30233N1 Transfusion of Nonautologous Red Blood Cells into Peripheral Vein, Percutaneous Approach (ICD-10-PCS; 2018-01-31)
PROC: B41F1ZZ Fluoroscopy of Right Lower Extremity Arteries using Low Osmolar Contrast (ICD-10-PCS; 2018-01-31)
DX: I70.221 Atherosclerosis of native arteries of extremities with rest pain, right leg (principal); I69.351 Hemiplegia and hemiparesis following cerebral infarction affecting right dominant side; D62 Acute posthemorrhagic anemia; T82.868A Thrombosis due to vascular prosthetic devices, implants and grafts, initial encounter; E78.5 Hyperlipidemia, unspecified; I10 Essential (primary) hypertension; I25.10 Atherosclerotic heart disease of native coronary artery without angina pectoris; F17.210 Nicotine dependence, cigarettes, uncomplicated; Z79.82 Long term (current) use of aspirin; F12.90 Cannabis use, unspecified, uncomplicated; Y83.2 Surgical operation with anastomosis, bypass or graft as the cause of abnormal reaction of the patient, or of later complication, without mention of misadventure at the time of the procedure
CPT/HCPCS: 36415; 36592; 73552; 82436; 86920; 87086; 93005; 93010; 97116-GO; 97161-GP; 97530-GO; C9399; J0131; J0690; J1100; J1644; J1940; J2270; J2405; J2550; J7042; P9016; Q9967